=== PATIENT | male | born 1985 ===

== ENCOUNTER 2017-04-03 20:08 | Emergency (ER) | payer BC ==
[2017-04-03 20:13] VITALS: BP 151/97; PULSE 85; RESP 16; O2SAT 100
[2017-04-03] MEDS ORDERED: Morphine 4 MG/ML VIAL ONE (20:27)
--- NOTE | 2017-04-03 20:33 | ED PDOC ---
Lower Extremity Pain/Injury Time Seen by Provider: 04/03/17 20:12 Chief Complaint (Nursing): Lower Extremity Problem/Injury Chief Complaint (Provider): Right Ankle Injury History Per: Patient History/Exam Limitations: no limitations Onset/Duration Of Symptoms: Other (prior to arrival) Current Symptoms Are (Timing): Still Present Additional Complaint(s): 31 year old male with no significant past medical history, who presents to the ED for evaluation of a right ankle injury just prior to arrival. Patient states he was jogging and rolled his ankle. Verbalizes that he was unable to bear weight thereafter. Reports that he felt a snapping sensation in his ankle as well as severe pain. Denies any other associated injuries. PMD: Sheela Stevenson Past Medical History Reviewed: Historical Data, Nursing Documentation, Vital Signs Vital Signs: Last Vital Signs Temp Pulse 85 04/03/17 20:10 Resp 16 04/03/17 20:10 BP 151/97 H 04/03/17 20:10 Pulse Ox 100 04/03/17 20:10 - Medical History PMH: No Chronic Diseases - Surgical History Other surgeries: Nasal fracture repair - Family History Family History: States: Unknown Family Hx - Social History Current smoker - smoking cessation education provided: No Alcohol: None Drugs: Denies - Home Medications Home Medications: Ambulatory Orders Medication Instructions Recorded Acetaminophen with Codeine 1 - 2 each PO Q6 PRN #12 tablet 04/03/17 [Tylenol with Codeine #3 Tablet] - Allergies Allergies/Adverse Reactions: Allergies Allergy/AdvReac Type Severity Reaction Status Date / Time No Known Allergies Allergy Verified 04/03/17 20:10 Review of Systems ROS Statement: Except As Marked, All Systems Reviewed And Found Negative Musculoskeletal: Positive for: Foot Pain (right ankle pain and swelling) Physical Exam - Reviewed Nursing Documentation Reviewed: Yes Vital Signs Reviewed: Yes - Physical Exam Appears: Positive for: Non-toxic, No Acute Distress Extremity: Positive for: Tenderness (right ankle internal and external malleolar surfaces), Capillary Refill (less than 2 seconds), Swelling (swelling and edema to right ankle internal and external malleolar surfaces), Other (full sensation and movement of right foot digits, no ecchymosis) Neurologic/Psych: Positive for: Alert, Oriented - Laboratory Results Result Diagrams: 04/03/17 21:20 04/03/17 21:20 - ECG O2 Sat by Pulse Oximetry: 100 (RA) Pulse Ox Interpretation: Normal Medical Decision Making Medical Decision Making: Time: :21 Initial Impression: 31 year old male with acute ankle injury Initial Plan: --BMP --Podiatry Consult --CBC w/ differential --Morphine 4 mg IVP --Heplock Insertion --X-Ray Right ankle 3 views --Reevaluation Time: 21:23 XR Right Ankle Complete Findings: Bones/joints: There is soft tissue swelling over lateral malleolus. There is no effusion in the ankle joint. There is a nondisplaced fracture of the distal fibula. No tibial fracture is identified. There is small bony ossicles adjacent to the superior distal aspect of the talus, age indeterminant Soft tissues: see above IMPRESSION: Distal fibular fracture with soft tissue swelling and ankle joint effusion Time: : Clinical Impression: Distal fibular spiral fracture Patient evaluated by Podiatry. Arrangements made for patient to have surgery next Friday under the care of Dr. Cy Leyva who is a friend of patient. Scribe Attestation: Documented by Candido Segura, acting as a scribe for Hiren Mao MD. Provider Scribe Attestation: All medical record entries made by the Scribe were at my direction and personally dictated by me. I have reviewed the chart and agree that the record accurately reflects my personal performance of the history, physical exam, medical decision making, and the department course for this patient. I have also personally directed, reviewed, and agree with the discharge instructions and disposition. Disposition - Clinical Impression Clinical Impression: Ankle fracture - Patient ED Disposition Is Patient to be Admitted: No Counseled Patient/Family Regarding: Studies Performed, Diagnosis, Need For Followup, Rx Given - Disposition Referrals: Cy Leyva, DPM [Family Provider] - Disposition: Routine/Home Disposition Time: :26 Condition: STABLE Prescriptions: Acetaminophen with Codeine [Tylenol with Codeine #3 Tablet] 1 - 2 each PO Q6 PRN #12 tablet PRN Reason: ankle pain Instructions: Ankle Fracture Forms: [facility] (Bhutanese), [facility] ED School/Work Excuse
[2017-04-03] MEDS ORDERED: Morphine 4 MG/ML VIAL IVP ONE (20:45)
--- NOTE | 2017-04-03 21:24 | RAD ---
EXAM: XR Right Ankle Complete, 3 or More Views EXAM DATE/TIME: 04/03/2017 8:22 PM CLINICAL HISTORY: 31 years old, male; Injury or trauma; Fall; Initial encounter; Blunt trauma; Ankle; Right; Additional info: Ankle injury TECHNIQUE: Frontal, lateral and oblique views of the right ankle. COMPARISON: There are no prior studies for comparison. FINDINGS: Bones/joints: There is soft tissue swelling over lateral malleolus. There is no effusion in the ankle joint. There is a nondisplaced fracture of the distal fibula. No tibial fracture is identified. There is small bony ossicles adjacent to the superior distal aspect of the talus, age indeterminant Soft tissues: see above IMPRESSION: Distal fibular fracture with soft tissue swelling and ankle joint effusion
[2017-04-03 21:33] LABS: BASO % 0.6 % (0.0-2.0); EOS # 0.1 K/uL (0.0-0.7); EOS % 0.7 % (0.0-4.0); HEMOGLOBIN 15.3 g/dL (12.0-18.0); LYMPH # 2.8 K/uL (1.0-4.3); LYMPH % 35.1 % (20.0-40.0); MEAN CELL VOLUME 84.9 fl (80.0-94.0); MEAN CORPUSCULAR HEMOGLOBIN 28.5 pg (27.0-31.0); MEAN CORPUSCULAR HGB CONC 33.6 g/dL (33.0-37.0); MEAN PLATELET VOLUME 10.7 fl (7.2-11.7); MONO # 0.4 K/uL (0.0-0.8); MONO % 5.2 % (0.0-10.0); NEUT # 4.7 K/uL (1.8-7.0); NEUT % 58.4 % (50.0-75.0); NRBC % 0.1 % (0.0-0.0); RBC 5.35 Mil/uL (4.40-5.90); RED CELL DISTRIBUTION WIDTH 13.3 % (11.5-14.5); WHITE BLOOD COUNT 8.1 K/uL (4.8-10.8)
[2017-04-03 21:42] LABS: BLOOD UREA NITROGEN 20 mg/dl (9-20); CALCIUM 9.5 mg/dL (8.4-10.2); GFR AFRICAN-AMERICAN > 60; GFR NON-AFRICAN AMERICAN > 60
[2017-04-03 21:46] VITALS: TEMP 98.5
--- NOTE | 2017-04-03 22:14 | CP.PCM.CON ---
History of Present Illness - History of Present Illness History of Present Illness: 31 yo male patient with no significant PMHx was seen at bedside ED after request for podiatry consultation. Patient presents with Right ankle injury sustained by rolling his ankle while running roughly 1 hour prior to his arrival to ED. Patient states that he heard poping sound and excruciating pain to follow. Patient cannot bear weight to right foot at this time. Patient is present with his be bedside. Patient is well known to Dr. Leyva and Dr. Kiana Basilio who advised the patient that surgery is needed to stabilize his right ankle. He denies of any other pedal complaints. Patient agrees with podiatry plan. Patient denies of any N/V/F/C or SOB today Review of Systems - Constitutional Constitutional: As Per HPI Past Patient History - Past Social History Alcohol: None Drugs: Denies Meds Home Medications: Home Medication List Medication Instructions Recorded Confirmed Type Acetaminophen with Codeine 1 - 2 each PO Q6 PRN #12 tablet 04/03/17 Rx [Tylenol with Codeine #3 Tablet] Allergies/Adverse Reactions: Allergies Allergy/AdvReac Type Severity Reaction Status Date / Time No Known Allergies Allergy Verified 04/03/17 20:10 Physical Exam - Constitutional Appears: Well, Non-toxic, No Acute Distress - Head Exam Head Exam: ATRAUMATIC - Extremities Exam Additional comments: Right lower extremity exam DERM: No open wound noted. No erythema is noted to right ankle. No drainage noted no sign of acute infection is noted. VASC: Moderate swelling is noted to Right ankle lateral aspect. Palpable DP and PT noted 2/4 bilaterally, DISTRESSER less than 3 seconds to all digits ORTHO: Pain on palpation to lateral aspect of right ankle NEURO: Gross sensation intact - Neurological Exam Neurological exam: Alert, Oriented x3 - Psychiatric Exam Psychiatric exam: Normal Affect, Normal Mood - Skin Skin Exam: Normal Color, Warm Results - Vital Signs Recent Vital Signs: Last Vital Signs Temp 98.5 F 04/03/17 21:46 Pulse 85 04/03/17 20:10 Resp 16 04/03/17 20:10 BP 151/97 H 04/03/17 20:10 Pulse Ox 100 04/03/17 20:40 - Labs Result Diagrams: 04/03/17 21:20 04/03/17 21:20 Labs: Laboratory Results - last 24 hr 04/03/17 04/03/17 21:20 21:20 WBC 8.1 RBC 5.35 Hgb 15.3 Hct 45.4 MCV 84.9 MCH 28.5 MCHC 33.6 RDW 13.3 Plt Count 162 MPV 10.7 Neut % (Auto) 58.4 Lymph % (Auto) 35.1 Island % (Auto) 5.2 Eos % (Auto) 0.7 Baso % (Auto) 0.6 Neut # (Auto) 4.7 Lymph # (Auto) 2.8 Island # (Auto) 0.4 Eos # (Auto) 0.1 Baso # (Auto) 0.0 Sodium 140 Potassium 4.8 Chloride 102 Carbon Dioxide 25 Anion Gap 18 BUN 20 Creatinine 1.2 Est GFR ( Amer) > 60 Est GFR (Non-Af Amer) > 60 Random Glucose 97 Calcium 9.5 Assessment & Plan - Assessment and Plan (Free Text) Assessment: 31 yo male patient presents with right ankle lateral malleolar fracture, closed , displaced Plan: patient was seen at bedside ED discussed in detail with attending Dr. Leyva Labs and vitals reviewed Xray reveals Right distal fibula fracture mildly displaced, closed reduction not necessary at this time Right lower extremity applied with posterior splint, compressive JD bandage Patient will be non-weight bearing with crutches Podiatry plan to take him for right ankle ORIF in 1 week Pain Rx per ED Patient advised to come back to ED if any other problems occur
== END 2017-04-03 21:40 | disposition home or self-care (01) ==
LOC: H.ER 20:08
DX: S82.61XA Displaced fracture of lateral malleolus of right fibula, initial encounter for closed fracture (principal); X50.9XXA Other and unspecified overexertion or strenuous movements or postures, initial encounter; Y92.89 Other specified places as the place of occurrence of the external cause
CPT/HCPCS: 29515; 73610; 80048; 85025; 96374; 99282; J2270

== ENCOUNTER → 2017-04-14 | Day surgery (SDC) | payer BC ==
[~2017-04-14] MED LIST: Bupivacaine 0.5% Inj(30mL) IJ ONE; Bupivacaine 0.5% Inj(30mL) ONE; Dexamethasone 4 mg/1 ml IVP PRN; Lactated Ringer's 1,000 ML IV ONE; Lidocaine 1% Inj (20ml) IJ ONE; Midazolam 2 MG/2 ML VIAL ONE; Oxycodone/Acetaminophen 5/325 mg Tab PO PRN; Propofol 10 mg/ml Inj (20 ML) ONE; Rocuronium 10 mg/ml (5 ml) ONE; Ropivacaine 0.5% 30ML IV ONE; Sodium Chloride 0.9% 1,000 ML IV SCH; Sodium Chloride 0.9% 10 ML IV ONE; Succinylcholine 200 mg/10 ml Inj IV ONE; ceFAZolin IV 2 gm in Dextrose 2 GM/50 ML BAG IVPB ONE; ePHEDrine 50 mg/ml Inj ONE
--- NOTE | 2017-04-14 07:16 | CP.PCM.PN ---
Subjective - Date & Time of Evaluation Date of Evaluation: 04/14/17 Time of Evaluation: 07:16 - Subjective Subjective: Podiatry Progress Note - Dr. Basilio 31 year old male unremarkable PMHx seen in [facility] for preoperative evaluation for right ankle stress manipulation with possible ORIF fibular fracture by Dr. Basilio Today. Patient states he sustained a right ankle fracture 1.5 weeks ago; currently reports minimal pain to right ankle. NPO confirmed. Patient offers no other complaints. Denies N/V/F/D/C/SOB. Objective - Constitutional Appears: Well, Non-toxic, No Acute Distress - Extremities Exam Additional comments: Posterior splint to RLE clean/dry/intact with no strikethrough noted - Neurological Exam Neurological Exam: Alert, Awake, Oriented x3 - Psychiatric Exam Psychiatric exam: Normal Affect, Normal Mood Assessment and Plan - Assessment and Plan (Free Text) Assessment: 31 yo male patient with right ankle lateral malleolar fracture, closed, displaced Plan: Pt was seen and examined in [facility] Pt NPO status was confirmed All Pre-op testing and clearance was in the chart Pt has exhausted all conservative treatment at this time and is opting for surgical intervention Pt was explained procedure and post-operative course All pt's questions were answered to satisfaction No guarantees were made Pt understands all risks, benefits and complications of procedure Pt will follow-up with Dr. Basilio
--- NOTE | 2017-04-14 07:16 | CP.SDSHP ---
Same Day Surgery H & P - History Proposed Procedure: Right ankle stress manipulation and possible ORIF fibula Pre-Op Diagnosis: right ankle lateral malleolar fracture, closed, displaced - Previous Medical/Surgical History Pain: 2.Mild Pain (mild pain with movement) - Allergies Allergies: Allergies No Known Allergies Allergy (Verified 04/03/17 20:10) - Current Medications Current Medications: None - Physical Exam General Appearance: Posterior splint to RLE clean/dry/intact Mental Status: Alert & Oriented x3 Neuro: WNL Heart: WNL GI: WNL - Impression Impression: Pt was seen and examined in [facility]. Pt NPO status was confirmed. All Pre-op testing and clearance was in the chart. Pt has exhausted all conservative treatment at this time and is opting for surgical intervention. Pt was explained procedure and post-operative course. All pt's questions were answered to satisfaction. No guarantees were made. Pt understands all risks, benefits and complications of procedure. Pt will follow-up with Dr. Basilio Pt. Evaluated Today:Candidate for Anesthesia & Procedure: Yes - Date & Time Date: 04/14/17 Time: :18 Short Stay Discharge - Short Stay Discharge Admitting Diagnosis/Reason for Visit: FIBULA FX Disposition: HOME/ ROUTINE Referrals: FAMILY PROVIDER,NO [Primary Care Provider] - Follow-up: Follow up with Dr. Basilio within 1 week of discharge Instructions: Ankle Fracture, Ankle Fracture (DC) Progress Note/Discharge Note with Instructions: --Patient in good/stable condition for discharge home. Pt to resume medications per medical reconciliation. Resume regular diet. Please keep dressing clean, dry, & intact to surgical site, use plastic bag over bandage for showering Remain non-weightbearing to RLE Call office if you see signs of infection (redness, swelling, malodor). Please make an appointment to see Dr. Basilio in office within 1 week for post- op check.
[2017-04-14 07:29] VITALS: BMI 24.4
--- NOTE | 2017-04-14 08:41 | PCM.SURG1 ---
Surgeon's Initial Post Op Note - Surgeon's Notes Surgeon: Dr. Basilio DPM, Dr. Leyva DPM Group Director Experience: Dr. Tavera DPM PGY-2, Dr. Lyubov Padgett DPM PGY-1 Type of Anesthesia: General LMA Anesthesia Administered By: Dr. Kamryn ROLLE Pre-Operative Diagnosis: right ankle lateral malleolar fracture, closed, displaced Operative Findings: See dictation. M: Casting material. I: None Post-Operative Diagnosis: Same Operation Performed: Right ankle stress manipulation under anesthesia Specimen/Specimens Removed: none Estimated Blood Loss: EBL {In ML}: 0 Blood Products Given: N/A Drains Used: No Drains Post-Op Condition: Good Date of Surgery/Procedure: 04/14/17 Time of Surgery/Procedure: 08:42
[2017-04-14 09:18] VITALS: RESP 20
[2017-04-14 09:44] VITALS: TEMP 97.4
[2017-04-14 10:21] VITALS: BP 126/80; PULSE 65; O2SAT 99
--- NOTE | 2017-04-14 13:58 | RAD ---
PROCEDURE: Right Ankle Radiographs. HISTORY: s/p right ankle surgery COMPARISON: Open 04/03/2017 None FINDINGS: BONES: Nonvisualization of known distal fibular fracture. JOINTS: Normal. No osteoarthritis. Ankle mortise maintained. Talar dome intact SOFT TISSUES: Decrease in soft tissue swelling compared to the prior study. OTHER FINDINGS: None. IMPRESSION: No acute findings visualized. Major fracture fragments portal fibula anatomically aligned. Limitations of the current study: Detail obscured by overlying fiberglass cast.
--- NOTE | 2017-04-14 15:02 | RAD ---
PROCEDURE: Fluoroscopy up to 1 hr. HISTORY: RIGHT ANKLE COMPARISON: None TECHNIQUE: Standard protocol for this study/examination. FINDINGS: Total fluoroscopic time (continuous mode) utilized during the procedure: 36.3 seconds. IMPRESSION: Submitted images from the current procedure: 4.0.
--- NOTE | 2017-04-16 19:10 | OP ---
PROCEDURE DATE: 04/14/2017 PREOPERATIVE DIAGNOSIS: Right ankle closed displaced lateral malleolar fracture. POSTOPERATIVE DIAGNOSIS: Right ankle closed displaced lateral malleolar fracture. PROCEDURES PERFORMED: 1. Right ankle manipulation under general anesthesia. 2. Closed reduction of right ankle fracture. 3. Fluoroscopy intraoperative assessment. 4. Application of right below-knee fiberglass cast. PRIMARY SURGEON: Kiana Basilio DPM ASSISTING SURGEON: Cy Leyva DPM ASSISTANTS: Antoine Johnson DPM, PGY-2 and Rena Padgett DPM, PGY-1 ANESTHESIOLOGIST: Dr. Brooke Casper. TYPE OF ANESTHESIA: General LMA. INDICATIONS: The patient is a 31-year-old male with the above-stated diagnoses. The patient has exhausted all conservative treatment options at this point and has now needed extensive surgical intervention. The patient signed the surgical consent after careful explanation of risks, benefits, complications, and potential alternatives of the post surgical procedures. No guarantees were either given or employed. The patient's questions and concerns were addressed to his satisfaction. PREPARATION: The patient's n.p.o. status was confirmed prior to bringing the patient to the operating room. The patient was brought into the operating room and placed on the operating room table in a supine position. Once general anesthesi was confirmed to have been achieved, the patient's right lower extremity was evaluated, placed on ipsilateral elevation, and the procedure was began. PROCEDURE 1: Right ankle manipulation under anesthesia: With general anesthesia confirmed to have been achieved and the patient receiving adequate skeletal muscle relaxation, attention was then directed to the patient's right ankle. At this time, the patient's right ankle was manipulated to assess the gross nature of left malleolar fracture and potential compromise of medial ligamentous structures and assess ability for ankle joint dislocation and evaluation grossly. Upon manipulation under anesthesia, no gross or producible lateral ankle joint subluxation dislocation was able to be performed. Medial ankle structure appeared intact. No medial tenting was produced upon manipulation under anesthesia. The patient was non-resistive and non-reactor to any potential painful stimuli. PROCEDURE 3: Fluoroscopic assessment of right ankle. At this time, C-arm was introduced to the operative field and sequential evaluations of anterior to posterior view, ankle mortise view and lateral ankle view, ankle was re-stressed to evaluate integrity of deltoid ligamentous structures and syndesmotic ligaments during stress views and stress manipulation. Under fluoroscopic imaging, it was found that syndesmotic structures were grossly intact and deltoid ligamentous structures were grossly intact. Spiral fibula fracture was noted to be manipulable into mild increased displacement ever easily returnable to pre-manipulation status. Overall, this indicated that distal fibular fracture was only compromised musculoskeletal structure, status post traumatic right ankle fracture. PROCEDURE 2: Closed reduction of right ankle fracture: Continuing with fluoroscopic imaging assessment, closed reduction of right ankle displaced fibular fracture was performed. Fibular component was re-aligned and returned to correct anatomical length. No lateral step-off was appreciated. Upon release and relaxation of manipulation, it was found that fibular component now correctly reduced anatomical position under fluoroscopic imaging. Application of below-knee fiberglass cast: At this time, with closed anatomical reduction achieved, the patient's right ankle was then placed in stockinette, [place], and fiberglass cast was applied below level of tibial tuberosity circumferentially below the lower extremity. Ankle joint maintained in neutral position until cast was complete. No soft tissue structures were . To avoid excess compression, fiberglass cast was and then dressed with JD compressive dressing to maintain stability and orientation of cast. POSTOPERATIVE CONDITION: The patient tolerated the anesthesia and procedure well, was escorted to the recovery room with vital signs stable and neurovascular status intact to the right lower extremity. The patient had no complaints or complications. Antoine Johnson DPM Kiana Basilio DPM
== END | disposition home or self-care (01) ==
LOC: H.OPSURG 06:59
PROVIDERS: ATTEND Podiatrist Primary Podiatric Medicine
DX: S82.63XA Displaced fracture of lateral malleolus of unspecified fibula, initial encounter for closed fracture (principal); X58.XXXA Exposure to other specified factors, initial encounter
CPT/HCPCS: 27829; 73610; J0330; J0690; J2001; J2250; J2405; J2704; J3010; J7120